=== PATIENT | female | born 1960 | race Caucasian/White ===

== ENCOUNTER 2024-07-16 11:30 | Day surgery (SDC) | payer OTHER ==
--- NOTE | 2024-07-14 15:38 | RAD REPORT ---
EXAMINATION: TWO VIEW CHEST XR CLINICAL INDICATION: Pre op pending heart cath TECHNIQUE: 2 views of the chest was performed. COMPARISON: No prior exam. FINDINGS: The lungs are well inflated and clear. The heart is upper limit of normal in size. No displaced fract ures evident. Dual lead pacer device. IMPRESSION: No acute or significant abnormalities.
[2024-07-14 16:19] LABS: Absolute Basophils 0.1 K/uL (0-0.5); Absolute Eosinophils 0.2 K/uL (0-0.5); Absolute Lymphocytes (CBC) 1.8 K/uL (0.7-4.9); Absolute Monocytes 0.7 K/uL (0.1-1.3); Absolute Neutrophil 4.6 K/uL (1.8-8.0); Basophils % 0.7 % (0-1.3); Eosinophils % 2.6 % (0-4.4); Hematocrit 35.3 % (36.0-45.0); Hemoglobin 11.9 g/dL (12.0-15.0); Lymphocytes % 24.9 % (15.3-44.8); MCH 28.3 pg (27.0-35.0); MCHC 33.8 g/dL (32.0-36.0); MCV 83.9 fL (80-100); MPV 9.6 fL (7.6-11.3); Monocytes % 9.2 % (3.3-12.3); Neutrophils % 62.6 % (41.7-73.7); Nucleated Red Blood Cells % 0.1 % (0-0); Platelets 205 thou/uL (152-406); RBC Red Blood Cell Count 4.21 M/uL (3.86-4.86); Red Cell Distribution Width 13.9 % (12.1-15.2)
[2024-07-14 16:24] LABS: PT Prothrombin Time 11.1 SECONDS (9.4-12.5); PTT, Activated Partial Thromb 30.6 SECONDS (24.3-36.9); Protime INR 0.99
[2024-07-14 16:33] LABS: Anion Gap 9.8 mEq/L (5.0-15.0); Potassium 3.8 mEq/L (3.5-5.1)
[2024-07-16] MEDS ORDERED: NA CHLORIDE 0.9% 500 ML ONE (12:07)
[2024-07-16] MEDS ORDERED: HEPA 1000U/500MLS 2,000 UNIT/1,000 ML BAG IV ONE (12:12)
[2024-07-16] MEDS ORDERED: HEPARIN 10,000 UNIT/10 ML VIAL IV ONE ×2 (12:12→13:17)
[2024-07-16] MEDS ORDERED: MIDAZOLAM HCL 2 MG/2 ML INJ ONE (12:12)
[2024-07-16] MEDS ORDERED: VERAPAMIL HCL 10 MG/4 ML VIAL IV ONE (12:12)
[2024-07-16] MEDS ORDERED: LIDOCAINE 1% 20 ML MDV ONE (12:12)
[2024-07-16] MEDS ORDERED: HEPARIN 5000 UNIT/ML 1 ML VIAL ONE (12:13)
[2024-07-16] MEDS ORDERED: ATROPINE SULF 1 MG/10 ML SYR IV ONE (12:13)
[2024-07-16] MEDS ORDERED: TICAGRELOR 90 MG TABLET PO ONE (12:13)
[2024-07-16] MEDS ORDERED: ASPIRIN 325 MG TAB ONE (12:13)
[2024-07-16] MEDS ORDERED: CLOPIDOGREL 75 MG TABLET ONE (12:13)
[2024-07-16] MEDS ORDERED: FENTANYL CITR 100 MCG/2 ML ONE (12:14)
[2024-07-16 15:48] VITALS: O2SAT 100
[2024-07-16 16:54] VITALS: BP 183/84
--- NOTE | 2024-07-16 22:06 | OP ---
Date of Procedure: 07/16/2024 Surgeon: MOHSEN SY Procedures Performed: 1.Selective coronary angiogram. 2.PCI of severe mid OM stenosis. I used 3.0 x 60 mm Synergy drug-eluting stent. 3.Left heart catheterization. 4.Bilateral selective carotid angiogram. Indication: 1.Chest pain with abnormal stress test. 2.Carotid stenosis on Doppler. Access: Right common femoral artery 6-Italian closed with 6-Italian Angio-Seal. Complications: None. Bleeding: Less than 50 mL. Anesthesia: Total sedation time was 1 hour, used fentanyl and Versed. Description Of Procedure: After risks, benefits, and alternatives were explained, the patient agreed to procedure and signed informed consent. [facility], prepped and draped in usual sterile fashion. Then, I accessed right common femoral artery us ing micropuncture kit, ultrasound guidance, fluoroscopy. Placed 6-Italian [place] sheath and took a 6-Italian JL4 catheter into aortic root, engaged left main, took standard views and exchanged for 6-Fr ench JR4 catheter, engaged the RCA, took standard views and then exchanged for 6-Italian 3DRC catheter , engaged the right common carotid, took standard views and then in the left common carotid and took standard views and exchanged for 6-Italian EBU3.5 guide, engaged the left main and that gave systemic heparin to assure ACT level above 250 throughout the procedure and loaded with 180 mg of Brilinta and baby aspirin. Then, I took a Runthrough wire into the left main and into the left circumflex into t he OM branch passing the area of stenosis and using a 3.0 balloon, lesion was pre-dilated successfull y. Then, I took a 3.0 x 60 mm Synergy drug-eluting stent across the area of stenosis to overlap with the previous stent that the patient had and stent expanded very well. No residual stenosis. Then w triny was removed. Final angiogram was satisfactory and then I removed the guide and the sheath, and 6 -Italian Angio-Seal was used for closure with good hemostasis. Findings: 1.Coronary angiogram. a.Left main is normal. b.LAD; proximal 30%, mid LAD is widely patent stent. Mid to distal LAD, there is 2 tandem lesions t hat are about 80% stenosis but the artery becomes small. Diagonal branches are with luminal irregula rities. c.Left circumflex; very large artery and it is dominant. The OM1 branch has a 50% proximal stenosis and then widely patent stent and then distal to the stent, there is 90% stenosis, status post succes sful PCI as above. d.RCA; widely patent proximal RCA stent. Mid RCA has 50% stenosis. e.LVEDP is elevated at 15 mmHg. 2.The carotid angiogram. a.Right common carotid is normal at the carotid bulb and the internal carotid on the right is about 40% stenosis. b.Left common carotid is normal and the left internal carotid has 70% stenosis. Conclusions: 1.Severe left internal carotid artery stenosis. We will plan for endarterectomy in about 6 months a s the patient just had PCI to the left circumflex. 2.Severe left circumflex disease involving the OM branch, status post successful PCI and also patien t has severe mid to distal LAD stenosis. We will plan to stage PCI in 4-6 weeks. Plan: Brilinta, aspirin, high-dose statin. Follow up with me in the office in 1 week and we will ar range for PCI of the LAD at a later time and the carotid artery, we will plan for endarterectomy in about 6 months. /MICHAEL Voice ID: [id number] Report ID: [id number]
--- NOTE | 2024-07-24 16:31 | EKG ---
Test Date: 2024-07-14 Test Time: 16:12:25 Slot Floor Supervisor: HERMELINDA MEASUREMENT RESULTS: Intervals: Rate: 80 WY: 178 QRSD: 184 QT: 468 QTc: 539 [place]: P: 68 W[place]: 178 QRS: -82 T: 91 INTERPRETIVE STATEMENTS: Normal sinus rhythm Left axis deviation Left ventricular hypertrophy with QRS widening and repolarization abnormality Lateral infarct, age undetermined Inferior infarct, age undetermined Abnormal ECG No previous ECG available for comparison Electronically Signed On 07-24-24 16:12:14 OSTEOLOGY TEACHER by Fareed Denton
== END 2024-07-16 17:40 | disposition home or self-care (01) ==
LOC: CCL 11:30
PROVIDERS: ATTEND Internal Medicine
DX: I25.10 Atherosclerotic heart disease of native coronary artery without angina pectoris (principal); I65.23 Occlusion and stenosis of bilateral carotid arteries; I10 Essential (primary) hypertension; E11.9 Type 2 diabetes mellitus without complications; E78.5 Hyperlipidemia, unspecified; Z95.5 Presence of coronary angioplasty implant and graft; Z87.891 Personal history of nicotine dependence; Z79.84 Long term (current) use of oral hypoglycemic drugs; Z79.899 Other long term (current) drug therapy; Z82.49 Family history of ischemic heart disease and other diseases of the circulatory system
CPT/HCPCS: 36222; 36415; 71046; 80048; 82947; 85025; 85610; 85730; 93005; 93458; 99152; C1725; C1760; C1893; C9600; G0269; J0461; J1644; J2003; J2250; J3010; J7040; Q9967

== ENCOUNTER 2024-10-02 07:40 | Day surgery (SDC) | payer OTHER ==
[2024-09-28 14:45] LABS: Absolute Basophils 0.1 K/uL (0-0.5); Absolute Eosinophils 0.3 K/uL (0-0.5); Absolute Lymphocytes (CBC) 2.2 K/uL (0.7-4.9); Absolute Monocytes 0.7 K/uL (0.1-1.3); Absolute Neutrophil 3.8 K/uL (1.8-8.0); Basophils % 0.8 % (0-1.3); Eosinophils % 4.2 % (0-4.4); Hematocrit 33.1 % (36.0-45.0); Hemoglobin 11.3 g/dL (12.0-15.0); Lymphocytes % 31.1 % (15.3-44.8); MCH 28.4 pg (27.0-35.0); MCHC 34.3 g/dL (32.0-36.0); MCV 82.9 fL (80-100); MPV 9.3 fL (7.6-11.3); Monocytes % 10.2 % (3.3-12.3); Neutrophils % 53.7 % (41.7-73.7); Platelets 255 thou/uL (152-406); Red Cell Distribution Width 13.8 % (12.1-15.2)
[2024-09-28 15:00] LABS: Anion Gap 7.4 mEq/L (5.0-15.0); Potassium 4.4 mEq/L (3.5-5.1)
[2024-09-28 15:02] LABS: PT Prothrombin Time 11.2 SECONDS (9.4-12.5); PTT, Activated Partial Thromb 31.8 SECONDS (24.3-36.9); Protime INR 1.07
[2024-10-02] MEDS ORDERED: NA CHLORIDE 0.9% 500 ML ONE (07:41)
[2024-10-02] MEDS ORDERED: VERAPAMIL HCL 10 MG/4 ML VIAL IV ONE (08:40)
[2024-10-02] MEDS ORDERED: LIDOCAINE 1% 20 ML MDV ONE (08:40)
[2024-10-02] MEDS ORDERED: HEPA 1000U/500MLS 2,000 UNIT/1,000 ML BAG IV ONE (08:40)
[2024-10-02] MEDS ORDERED: HEPARIN 10,000 UNIT/10 ML VIAL IV ONE (08:40)
[2024-10-02] MEDS ORDERED: HEPARIN 5000 UNIT/ML 1 ML VIAL ONE (08:41)
[2024-10-02] MEDS ORDERED: MIDAZOLAM HCL 2 MG/2 ML INJ ONE (08:41)
[2024-10-02] MEDS ORDERED: ATROPINE SULF 1 MG/10 ML SYR IV ONE (08:41)
[2024-10-02] MEDS ORDERED: FENTANYL CITR 100 MCG/2 ML ONE (09:37)
[2024-10-02] MEDS ORDERED: CLOPIDOGREL 75 MG TABLET ONE (09:57)
--- NOTE | 2024-10-02 10:42 | OP ---
Date of Procedure: 10/02/2024 Surgeon: MOHSEN SY Procedures Performed: 1. Selective coronary angiogram. 2. Percutaneous coronary intervention of severe mid left anterior descending stenosis, used 2.25 x 60 mm Synergy drug-eluting stent. Indication: Chest pain with known LAD disease. Access: Right common femoral artery, 6-Polish, closed with 6-Polish Angio-Seal. Complications: None. Bleeding: Less than 50 mL. Total Sedation Time: 45 minutes. Fentanyl and Versed were used. Description Of Procedure: After risks, benefits, and alternatives were explained, the patient agreed to procedure and signed informed consent. The patient was brought into cardiac catheterization [facility], prepped and draped in a sterile fashion. Then, I accessed right common femoral artery using micropuncture kit, ultrasound guidance, fluoroscopy. Placed 6-Polish [place] sheath and took a 6-Fr ench EBU 3.5 guide over J-wire into the aortic root, engaged left main, took standard views. Then ga ve systemic heparin to assure ACT level above 250 throughout the procedure and took short Runthrough wire into the LAD, placed it distally. Using a 2.5 balloon, lesion expanded very well and pre-dilate d. Then, I took a 2.25 x 16 mm Synergy drug-eluting stent, deployed across the 2 areas of stenosis a nd overlapped with the mid LAD stent. Angiogram was satisfactory, so wire was removed. Final angiog glory was satisfactory and removed the guide and the sheath, and 6-Polish Angio-Seal was used for closu re with good hemostasis. Findings: 1. Left main is normal. 2. LAD: Proximal 30% stenosis and then mid LAD widely patent stent. Distal to the stent, there is f ocal 80% and then healthy segment, and then another 80% stenosis, status post successful PCI as above . 3. Left circumflex: Large and has widely patent OM stent. Conclusion: Severe mid LAD stenosis, status post successful PCI. Plan: Aspirin, Plavix, and high-dose statin. SR/MODL Voice ID: [id number] Report ID: [id number]
[2024-10-02 13:36] VITALS: BP 154/77; O2SAT 98
--- NOTE | 2024-10-05 12:32 | EKG ---
Test Date: 2024-09-28 Test Time: 14:58:24 Watch Assembler: VINCE MEASUREMENT RESULTS: Intervals: Rate: 71 NC: 168 QRSD: 182 QT: 476 QTc: 517 [place]: P: -14 NC: 168 QRS: -74 T: 92 INTERPRETIVE STATEMENTS: Normal sinus rhythm Ventricular pre-excitation, WPW pattern type A Abnormal ECG Compared to ECG 07/14/2024 16:12:25 Ventricular preexcitation now present Left-axis deviation no longer present Left ventricular hypertrophy no longer present Early repolarization no longer present Myocardial infarct finding no longer present Electronically Signed On 10-05-24 12:18:25 ROOF CEMENT AND PAINT MAKER HELPER by Fareed Denton
--- NOTE | 2024-10-05 12:32 | EKG ---
Test Date: 2024-09-28 Test Time: 15:00:02 Power Tong Operator: VINCE MEASUREMENT RESULTS: Intervals: Rate: 66 MO: 184 QRSD: 180 QT: 484 QTc: 507 [place]: P: -21 MO: 184 QRS: -76 T: 90 INTERPRETIVE STATEMENTS: Normal sinus rhythm with sinus arrhythmia Left axis deviation Left ventricular hypertrophy with QRS widening and repolarization abnormality Inferior infarct, age undetermined Anterolateral infarct, age undetermined Abnormal ECG Compared to ECG 09/28/2024 14:58:24 Left-axis deviation now present Left ventricular hypertrophy now present Early repolarization now present Myocardial infarct finding now present Ventricular preexcitation no longer present Electronically Signed On 10-05-24 12:18:24 STEEL FIXER by Fareed Denton
== END 2024-10-02 14:24 | disposition home or self-care (01) ==
LOC: CCL 07:40
PROVIDERS: ATTEND Internal Medicine
DX: I25.10 Atherosclerotic heart disease of native coronary artery without angina pectoris (principal); I65.29 Occlusion and stenosis of unspecified carotid artery; I10 Essential (primary) hypertension; E78.5 Hyperlipidemia, unspecified; E11.9 Type 2 diabetes mellitus without complications; Z95.0 Presence of cardiac pacemaker; Z95.5 Presence of coronary angioplasty implant and graft; Z87.891 Personal history of nicotine dependence; Z79.02 Long term (current) use of antithrombotics/antiplatelets; Z79.4 Long term (current) use of insulin; Z79.899 Other long term (current) drug therapy; Z88.8 Allergy status to other drugs, medicaments and biological substances; Z82.49 Family history of ischemic heart disease and other diseases of the circulatory system
CPT/HCPCS: 93005 ×2; 85025; 80048; 36415; 82947; 85610; 85347; 85730; 93454; 76937; C1893; Q9966; C1760; G0269; C1725; C9600; J1644; J2003; J2250; J3010; J7040; 92928; 99152; 99153; J0461